=== PATIENT | male | born 1975 | race Caucasian/White ===

== ENCOUNTER 2024-12-22 18:59 | Inpatient (IN) | payer MEDICAID ==
[~2024-12-22] VITALS: Ht 167.6 cm; Wt 81.6 kg
[2024-12-22 19:03] VITALS: O2SAT 99
[2024-12-22 20:40] LABS: HEMATOCRIT. 39.9 % (42.0-52.0); HEMOGLOBIN. 12.7 g/dL (14.0-18.0); MEAN PLATELET VOLUME 7.5 fl (7.4-10.4); PLATELET 213 x1000/uL (130-400); RED BLOOD CELL COUNT 4.07 mill/uL (4.7-6.1); RED CELL DISTRIBUTION WIDTH 16.1 % (11.6-14.6)
[2024-12-22 20:51] LABS: LYMPHOCYTES % MANUAL 36.0 % (20.0-50.0); MONOCYTES % MANUAL 14.0 % (2.0-8.0); NEUTROPHILS % MANUAL 50.0 % (45.0-75.0); PLATELET ESTIMATE NORMAL
[2024-12-22 20:54] LABS: CREATININE 0.7 mg/dL (0.6-1.3)
[2024-12-22 20:55] LABS: UREA NITROGEN BLOOD 9 mg/dL (9-23)
[2024-12-22 20:56] LABS: ASPARTATE AMINOTRANSFERASE 45 IU/L (<34); BILIRUBIN DIRECT < 0.1 mg/dL (<=3.0)
[2024-12-22 20:57] LABS: BILIRUBIN TOTAL 0.2 mg/dL (0.1-1.0); PROTEIN TOTAL 8.1 g/dL (6.0-8.3)
[2024-12-22] MEDS: SODIUM CHLORIDE 0.9% 1,000 ML IV ONE (21:42)
[2024-12-22 22:30] VITALS: BP 120/71; PULSE 81; RESP 17; TEMP 36.4; O2SAT 100
[2024-12-23] VITALS (7 sets, daily range): BP systolic 110–137; BP diastolic 66–86; PULSE 69–83; RESP 16–18; TEMP 36.3–37.4; O2SAT 98–100
[2024-12-23] MEDS: LEVETIRACETAM 500MG TABLET PO SCH (08:57)
[2024-12-23] MEDS ORDERED: ACETAMINOPHEN 650MG/20.3ML UDC PO PRN (12:30)
[2024-12-23] MEDS: FOLIC ACID 1MG TABLET PO SCH (12:44)
[2024-12-23] MEDS: THIAMINE HCL 100MG TABLET PO SCH (12:44)
[2024-12-23 12:49] LABS: BASOPHILS % 0.7 % (0.0-2.0); EOSINOPHILS % 1.1 % (0.0-5.0); HEMATOCRIT. 36.7 % (42.0-52.0); HEMOGLOBIN. 12.4 g/dL (14.0-18.0); LYMPHOCYTES % 30.9 % (20.0-50.0); MEAN PLATELET VOLUME 7.7 fl (7.4-10.4); MONOCYTES % 14.1 % (2.0-8.0); NEUTROPHILS % 53.2 % (40.0-76.0); PLATELET 214 x1000/uL (130-400); RED BLOOD CELL COUNT 3.85 mill/uL (4.7-6.1); RED CELL DISTRIBUTION WIDTH 15.7 % (11.6-14.6)
[2024-12-23 13:02] LABS: CREATININE 0.5 mg/dL (0.6-1.3)
[2024-12-23 13:03] LABS: UREA NITROGEN BLOOD 11 mg/dL (9-23)
[2024-12-23] MEDS: ACETAMINOPHEN 325MG TABLET PO PRN (13:23)
[2024-12-23] MEDS: CHLORDIAZEPOXIDE 25MG CAPSULE PO SCH (13:59)
[2024-12-24] VITALS: BP 114/64; PULSE 78; RESP 19; TEMP 37.2; O2SAT 99
[2024-12-24 04:00] VITALS: BP 109/66; PULSE 65; RESP 17; TEMP 37; O2SAT 97
[2024-12-24 08:00] VITALS: BP 125/80; PULSE 84; RESP 18; TEMP 36.1; O2SAT 96
[2024-12-24] MEDS: LORAZEPAM 1MG TABLET PO PRN (09:21)
[2024-12-24 12:00] VITALS: BP 109/72; PULSE 71; RESP 18; TEMP 36.4; O2SAT 96
[2024-12-24 16:00] VITALS: BP 105/64; PULSE 61; RESP 18; TEMP 36.4; O2SAT 98
[2024-12-24 18:11] VITALS: BP 105/64; PULSE 61; RESP 18; TEMP 97.6
== END 2024-12-24 18:30 | disposition home or self-care (01) | DRG 52 ==
LOC: EDBD 18:59 → ER 18:59 → EDBEDREQSVC 21:37 → EDBEDREQ 21:37 → EDBEDREQTM 21:37 → ENRESERV 21:44 → 5WST 22:30
PROVIDERS: ADMIT Internal Medicine; ATTEND Internal Medicine
DX: G92.8 Other toxic encephalopathy (principal); F10.129 Alcohol abuse with intoxication, unspecified; Z55.6 Problems related to health literacy; Y90.8 Blood alcohol level of 240 mg/100 ml or more
CPT/HCPCS: 36415; 80048; 80076; 80320; 85025; 93005; 96360; 99285; J7030; G0480